=== PATIENT | male | born 1965 | race Caucasian/White ===

== ENCOUNTER 2016-08-08 06:43 | Day surgery (SDC) | payer BC ==
[2016-08-06 14:39] VITALS: BMI 26.5
[2016-08-08] MEDS ORDERED: ACETAMINOPHEN 1000 MG/100 ML VIAL (NON FORMULARY) IVPB ONE (08:08)
[2016-08-08] MEDS ORDERED: IBUPROFEN 800 MG/8 ML IJ IVPB PRN (08:08)
--- NOTE | 2016-08-08 08:08 | HP ---
History & Physical Update - History History: No Change - Physical Physical: No Change - Assessment Assessment: No Change - Plan Plan: No Change
[2016-08-08] MEDS ORDERED: DEXTROSE 5%-0.45% SALINE 1,000 ML IV SCH (08:15)
[2016-08-08] MEDS ORDERED: MIDAZOLAM HCL 2 MG/2 ML SINGLE DOSE VIAL ONE (08:20)
[2016-08-08] MEDS ORDERED: LIDOCAINE HCL/PF 2% SDV 5ML VIAL ONE (08:20)
[2016-08-08] MEDS ORDERED: PROPOFOL 20 ML ONE (08:20)
[2016-08-08] MEDS ORDERED: LIDOCAINE HCL 2% JELLY 10 ML CARTRIDGE ONE (08:34)
[2016-08-08] MEDS ORDERED: ceFAZolin SODIUM 1 GM VIAL IVPB ONE (08:34)
[2016-08-08] MEDS ORDERED: ceFAZolin SODIUM 1 GM VIAL ONE (08:35)
[2016-08-08] MEDS ORDERED: DEXAMETHASONE SOD PHOSPHATE 4 MG/1 ML VIAL ONE (08:36)
[2016-08-08] MEDS ORDERED: LIDOCAINE HCL 2% JELLY 10 ML CARTRIDGE TP ONE (08:41)
[2016-08-08] MEDS ORDERED: ACETAMINOPHEN INJECTION 100 ML IVPB ONE (08:45)
[2016-08-08] MEDS ORDERED: oxyCODONE HCL 5 MG TABLET PO PRN (08:56)
[2016-08-08] MEDS ORDERED: ONDANSETRON 4 MG/2 ML VIAL IVPUSH PRN (08:56)
[2016-08-08] MEDS ORDERED: LACTATED RINGERS SOLUTION 1,000 ML IV SCH (09:00)
[2016-08-08 09:15] VITALS: PULSE 70; TEMP 98
--- NOTE | 2016-08-08 10:29 | OP ---
DATE OF OPERATION: 08/08/2016 PREOPERATIVE DIAGNOSIS: Benign prostatic hypertrophy and bladder stone. POSTOPERATIVE DIAGNOSIS: Benign prostatic hypertrophy, dysuria. PROCEDURE: Cystoscopy, instillation with lidocaine. SURGEON: Dick Hess MD ANESTHESIOLOGIST: Sarina Mora MD ANESTHESIA: General. FINDINGS: Enlarged prostate, trabeculations throughout the bladder. No tumors or stones were seen. PREOPERATIVE INDICATIONS: The patient is a 51-year-old male who is on multiple medications including antiplatelet agents for heart disease. He presented to the office about a week ago with severe dysuria that was persistent for a week. He was noted to have a stone, which had originally been seen on ultrasound. It was adherent to the prostatic urethra. It was displaced at the time, was instilled back into the bladder. He subsequently had gross hematuria and clots. He comes to the OR today for laser litholapaxy of bladder stone. OPERATION: Patient was brought to the OR, placed on the table in the supine position, given general anesthesia and IV antibiotics and placed in the modified lithotomy position. The groin was prepped and draped sterilely. Time-out was performed. Cystoscopy was performed. The distal urethra appeared to be normal. The prostate again looked inflamed, was obstructive in the high median bar, and the , the prostatic urethra was very hyperemic and friable. No stones were seen in the prostatic urethra. The bladder itself had trabeculations throughout. The findings were consistent with longstanding bladder outlet obstruction. No tumors were seen. Both UOs were visualized with clear efflux. The stone originally seen was not seen today. Bladder was examined in a 360-degree fashion. The prostate urethra was also examined, and the stone appeared to have been voided out in the interim. Lidocaine jelly was instilled into the bladder for postoperative analgesia. The patient was woken up. DICK HESS M.D. [id number]
[2016-08-08 10:39] VITALS: BP 119/66
== END 2016-08-08 10:25 | disposition home or self-care (01) ==
LOC: JASU-SURG 06:43
PROVIDERS: ATTEND Urology
PROC: 0TJB8ZZ Inspection of Bladder, Via Natural or Artificial Opening Endoscopic (ICD-10-PCS; principal; 2016-08-08 08:00)
DX: N40.0 Benign prostatic hyperplasia without lower urinary tract symptoms (principal); R30.0 Dysuria
CPT/HCPCS: 94760

== ENCOUNTER 2016-10-01 06:44 | Day surgery (SDC) | payer BC ==
[2016-09-30 14:39] VITALS: BMI 26.5
[2016-10-01] MEDS ORDERED: PROPOFOL 20 ML ONE ×3 (08:09)
[2016-10-01] MEDS ORDERED: LIDOCAINE HCL/PF 2% SDV 5ML VIAL ONE (08:10)
[2016-10-01 09:09] VITALS: TEMP 97.8
[2016-10-01 09:37] VITALS: PULSE 66
[2016-10-01 09:47] VITALS: BP 113/63
--- NOTE | 2016-10-02 13:30 | PATH ---
Surgical Pathology Report Patient Name: BELINDA DAVIS [facility]. Rec. #: [id number] /Age/Gender: 1965 (Age: 51) / M Account: [id number] Location: U-ENDOSCOPY Taken: 10/01/2016 Received: 10/01/2016 Reported: 10/02/2016 Physicians: Rosamaria Peck M.D. Specimen(s) Received A: BX SECOND PORTION DUODENUM AND DUODENAL BULB B: BX ANTRUM C: RECTAL POLYP D: POLYP SIGMOID E: BX TRANSVERSE COLON POLYP F: BX RIGHT COLON POLYP Clinical History GERD, right upper quadrant pain, adenoma surveillance Antral gastritis, colon polyps, diverticulosis Final Diagnosis A. DUODENUM, SECOND PORTION AND BULB, BIOPSY: DUODENAL MUCOSA WITH NO PATHOLOGIC CHANGES. NO HISTOLOGIC EVIDENCE OF GLUTEN SENSITIVE ENTEROPATHY (CELIAC SPRUE) IDENTIFIED. B. STOMACH, ANTRUM, BIOPSY: MILD CHRONIC GASTRITIS WITH INTESTINAL METAPLASIA. NO DYSPLASIA IDENTIFIED. IMMUNOSTAIN FOR H. PYLORI IS NEGATIVE. C. COLON, RECTUM, BIOPSY: MULTIPLE PORTIONS OF HYPERPLASTIC POLYP. D. COLON, SIGMOID, BIOPSY: HYPERPLASTIC POLYP. E. COLON, TRANSVERSE, BIOPSY: TUBULAR ADENOMA. F. COLON, RIGHT, BIOPSY: TUBULAR ADENOMA. Electronically Signed Fabio Butterfield M.D. Gross Description A. Received in formalin, labeled "biopsy second portion of duodenum and duodenal bulb" are 3 beach, irregular portions of soft tissue ranging from 0.3-0.4 cm. in greatest dimension. The specimens are submitted in toto in one cassette. B. Received in formalin, labeled "biopsy antrum" are 3 beach, irregular portions of soft tissue ranging from 0.2-0.5 cm. in greatest dimension. The specimens are submitted in toto in one cassette. C. Received in formalin, labeled "biopsy polyp rectum" are 6 beach, irregular portions of soft tissue ranging from 0.1-0.4 cm. in greatest dimension. The specimens are submitted in toto in one cassette. D. Received in formalin, labeled "sigmoid polyp" is a beach, polypoid portion of soft tissue measuring 0.4 cm. in greatest dimension. The specimen is submitted in toto in one cassette. E. Received in formalin, labeled "biopsy transverse colon polyp" are 3 beach, irregular portions of soft tissue ranging from 0.1-0.4 cm. in greatest dimension. The specimens are submitted in toto in one cassette. F. Received in formalin, labeled "right colon polyp" is a beach, polypoid portion of soft tissue admixed with mucus measuring 0.4 cm. in greatest dimension. The specimen is submitted in toto in one cassette. 10/01/201610/01/2016
== END 2016-10-01 09:47 | disposition home or self-care (01) ==
LOC: JASU-ENDO 06:44
PROVIDERS: ATTEND Internal Medicine Gastroenterology
PROC: 0DBN8ZX Excision of Sigmoid Colon, Via Natural or Artificial Opening Endoscopic, Diagnostic (ICD-10-PCS; 2016-10-01)
PROC: 0DBP8ZX Excision of Rectum, Via Natural or Artificial Opening Endoscopic, Diagnostic (ICD-10-PCS; 2016-10-01)
PROC: 0DBL8ZX Excision of Transverse Colon, Via Natural or Artificial Opening Endoscopic, Diagnostic (ICD-10-PCS; 2016-10-01)
PROC: 0DB98ZX Excision of Duodenum, Via Natural or Artificial Opening Endoscopic, Diagnostic (ICD-10-PCS; 2016-10-01)
PROC: 0DB68ZX Excision of Stomach, Via Natural or Artificial Opening Endoscopic, Diagnostic (ICD-10-PCS; 2016-10-01)
PROC: 0DBK8ZX Excision of Ascending Colon, Via Natural or Artificial Opening Endoscopic, Diagnostic (ICD-10-PCS; principal; 2016-10-01 08:00)
DX: Z12.11 Encounter for screening for malignant neoplasm of colon (principal); Z86.010 Personal history of colon polyps; K62.1 Rectal polyp; D12.5 Benign neoplasm of sigmoid colon; D12.3 Benign neoplasm of transverse colon; D12.2 Benign neoplasm of ascending colon; K57.30 Diverticulosis of large intestine without perforation or abscess without bleeding; K64.8 Other hemorrhoids; K29.40 Chronic atrophic gastritis without bleeding
CPT/HCPCS: 88305-TC; 88342-TC

== ENCOUNTER 2020-03-16 05:02 | Day surgery (SDC) | payer OTHER ==
[2020-03-14 14:41] VITALS: BMI 25.5
[2020-03-16] MEDS ORDERED: ALBUTEROL SO4 HFA INHALER IH ONE ×2 (08:00→08:03)
[2020-03-16 10:18] VITALS: BP 109/73; PULSE 76; TEMP 98.7
== END 2020-03-16 10:15 | disposition home or self-care (01) ==
LOC: JASU-ENDO 05:02
PROVIDERS: ATTEND Internal Medicine Gastroenterology
PROC: 0DBL8ZX Excision of Transverse Colon, Via Natural or Artificial Opening Endoscopic, Diagnostic (ICD-10-PCS; 2020-03-16)
PROC: 0DBP8ZX Excision of Rectum, Via Natural or Artificial Opening Endoscopic, Diagnostic (ICD-10-PCS; 2020-03-16)
PROC: 0DB98ZX Excision of Duodenum, Via Natural or Artificial Opening Endoscopic, Diagnostic (ICD-10-PCS; 2020-03-16)
PROC: 0DB68ZX Excision of Stomach, Via Natural or Artificial Opening Endoscopic, Diagnostic (ICD-10-PCS; 2020-03-16)
PROC: 0DB48ZX Excision of Esophagogastric Junction, Via Natural or Artificial Opening Endoscopic, Diagnostic (ICD-10-PCS; 2020-03-16)
PROC: 0DBK8ZX Excision of Ascending Colon, Via Natural or Artificial Opening Endoscopic, Diagnostic (ICD-10-PCS; principal; 2020-03-16 08:00)
DX: Z12.11 Encounter for screening for malignant neoplasm of colon (principal); Z86.010 Personal history of colon polyps; K62.1 Rectal polyp; D12.2 Benign neoplasm of ascending colon; D12.3 Benign neoplasm of transverse colon; K57.30 Diverticulosis of large intestine without perforation or abscess without bleeding; K64.8 Other hemorrhoids; K20.90 Esophagitis, unspecified without bleeding; K44.9 Diaphragmatic hernia without obstruction or gangrene; K25.9 Gastric ulcer, unspecified as acute or chronic, without hemorrhage or perforation; K92.1 Melena; I10 Essential (primary) hypertension; E11.9 Type 2 diabetes mellitus without complications
CPT/HCPCS: 88305-TC; 88342-TC